=== PATIENT | female | born 1960 | race Caucasian/White ===

== ENCOUNTER 2024-09-10 10:22 | Emergency (ER) | payer OTHER ==
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
[2024-09-10 12:46] VITALS: BP 140/76; PULSE 64; RESP 18; TEMP 97.9
== END 2024-09-10 12:46 | disposition home or self-care (01) ==
LOC: EC 10:22
DX: S06.0X0A Concussion without loss of consciousness, initial encounter (principal); S20.219A Contusion of unspecified front wall of thorax, initial encounter; S00.83XA Contusion of other part of head, initial encounter; F17.200 Nicotine dependence, unspecified, uncomplicated; Z88.5 Allergy status to narcotic agent; Z88.8 Allergy status to other drugs, medicaments and biological substances; Y04.0XXA Assault by unarmed brawl or fight, initial encounter
CPT/HCPCS: 70486; 71111; 93005; 99284

== ENCOUNTER 2024-09-11 11:45 | Emergency (ER) | payer OTHER ==
[2024-09-11 11:50] VITALS: RESP 18; TEMP 97.9
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
[2024-09-11] MEDS: KETOROLAC 15 MG/ML 1 ML VIAL IM STA (12:41)
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
[2024-09-11] MEDS: HYDROcodone/APAP 5-325MG 1 EACH TAB PO STA (14:15)
[2024-09-11 15:35] VITALS: BP 163/77; PULSE 75
== END 2024-09-11 15:35 | disposition home or self-care (01) ==
LOC: EC 11:45
CPT/HCPCS: 71250; 96372; 99285